=== PATIENT | male | born 1980 | race Caucasian/White ===

== ENCOUNTER 2021-11-15 11:35 | Emergency (ER) | payer MEDICAID, OTHER ==
[~2021-11-15] VITALS: Ht 165.1 cm; Wt 75.0 kg
[~2021-11-15 11:35] MED LIST: IBUP-2071 PO; NAPR-1024 PO
[2021-11-15] MEDS ORDERED: POVIDONE-IODINE 10% 15 ML SOLUTION UD TP ONE (13:00)
[2021-11-15] MEDS ORDERED: LIDOCAINE 1% 10 ML VIAL SQ ONE (13:00)
[2021-11-15] MEDS ORDERED: BACITRACIN 0.9 GM PACKET OINTMENT TP ONE (13:00)
[2021-11-15] MEDS ORDERED: ACETAMINOPHEN 500 MG TABLET PO ONE (13:30)
[2021-11-15] MEDS ORDERED: KETOROLAC TROMETHAMINE 10 MG TABLET PO ONE (13:30)
[2021-11-15 14:13] VITALS: BP 133/79
== END 2021-11-15 14:23 | disposition home or self-care (01) ==
LOC: EMS 11:48
DX: S61.212A Laceration without foreign body of right middle finger without damage to nail, initial encounter (principal); F17.210 Nicotine dependence, cigarettes, uncomplicated; Z88.0 Allergy status to penicillin; W26.0XXA Contact with knife, initial encounter; Y93.89 Activity, other specified; Y92.89 Other specified places as the place of occurrence of the external cause; Y99.8 Other external cause status
CPT/HCPCS: 12001; 99283; J3490